=== PATIENT | female | born 1970 ===

== ENCOUNTER 2020-10-28 12:05 | Day surgery (SDC) | payer OTHER | END 2020-10-28 15:00 | disposition home or self-care (01) | LOC: AMB-ENDOS 12:05 → CIR.AMB 14:30 → AMB-ENDOS 15:00 | PROVIDERS: ATTEND Surgery | DX: K62.89 Other specified diseases of anus and rectum (principal); Z20.822 Contact with and (suspected) exposure to COVID-19 ==

== ENCOUNTER → 2021-05-30 08:00 | Outpatient (CLI) | payer OTHER | END | disposition home or self-care (01) | LOC: LAB 08:00 → ADM 14:45 → EDSTATUS 06-02 14:45 → AMB-ENDOS 06-02 14:45 | PROVIDERS: ATTEND Surgery | DX: K59.09 Other constipation (principal); K92.1 Melena; Z20.822 Contact with and (suspected) exposure to COVID-19; D50.8 Other iron deficiency anemias ==